=== PATIENT | female | born 1985 | race Two or more races ===

== ENCOUNTER 2018-01-01 11:50 | Outpatient (CLI) | END 2018-01-01 12:45 | disposition home or self-care (01) ==

== ENCOUNTER 2018-01-08 12:49 | Outpatient (CLI) | END 2018-01-08 15:24 | disposition home or self-care (01) ==

== ENCOUNTER 2018-01-11 09:42 | Outpatient (CLI) | END 2018-01-11 11:00 | disposition home or self-care (01) ==

== ENCOUNTER 2018-01-15 13:09 | Outpatient (CLI) | END 2018-01-15 15:20 | disposition home or self-care (01) ==

== ENCOUNTER 2018-01-16 14:20 | Inpatient (IN) | END 2018-01-19 16:18 | disposition home or self-care (01) | DRG 766 ==

== ENCOUNTER 2018-01-31 15:10 | Emergency (ER) | END 2018-01-31 17:36 | disposition home or self-care (01) ==